=== PATIENT | male | born 1950 | race Caucasian/White ===

== ENCOUNTER 2025-09-05 10:47 | Emergency (ER) | payer OTHER ==
[~2025-09-05] VITALS: Ht 172.7 cm; Wt 80.3 kg
[~2025-09-05 10:47] MED LIST: HYDROCODONE BIT1 T11 PO
== END 2025-09-05 13:00 | disposition home or self-care (01) ==
LOC: ED 10:47
DX: S82.141A Displaced bicondylar fracture of right tibia, initial encounter for closed fracture (principal); Z88.5 Allergy status to narcotic agent; Z79.899 Other long term (current) drug therapy; X50.1XXA Overexertion from prolonged static or awkward postures, initial encounter; Y93.01 Activity, walking, marching and hiking; Y92.89 Other specified places as the place of occurrence of the external cause; Y99.8 Other external cause status